=== PATIENT | female | born 1935 | race Caucasian/White ===

== ENCOUNTER → 2022-07-10 12:26 | Outpatient (CLI) | payer MEDICARE, SELFPAY ==
--- NOTE | 2022-07-10 | DI.ECHO.S_ITS ---
[facility] +---------+ : : [address] : [address] : : : : [id number] : : : : Phone: [phone]+ Echocardiogram Report + + :Name: DEBBIE ORLANDO Study Date: 07/10/2022 Height: 62 in : [facility] ReadingLocation: Weight: 140 lb : : Gender: Female BSA: 1.6 m2 : :: 1935 Age: 86 yrs BP: 134/69 mmHg: :Reason For Study: AORTIC STENOSIS : :Ordering Physician: WERNER, : :DAYANA Performed By: Talita Salazar : :Referring: DAYANA MERINO : + + Interpretation Summary 1) Normal left ventricular thickness, size, wall motion, and systolic function (EF 60-65%). 2) Mildly enlarged right ventricle with normal function. 3) There is severe aortic stenosis (valve area 0.8cm2, mean gradient 34mmmHg, severity ratio 0.25). 4) Compared to the Echo done 05/10/2017, aortic stenosis has progressed from mild-moderate to severe on this study. Procedure: A two-dimensional transthoracic echocardiogram with color flow and Doppler was performed. The study quality was technically adequate. There is no prior echocardiogram noted for this patient. The patient was in sinus rhythm with heart rates between 60-68 bpm during the exam. Left Ventricle: The left ventricle is normal in size and wall thickness. The ejection fraction is estimated to be 60-65%. Left ventricular systolic function appears normal without focal wall motion abnormalities. Diastolic parameters suggest a pseudonormalization pattern, consistent with probable elevated filling pressures. Right Ventricle: The right ventricle is mildly dilated. The right ventricular systolic function is normal. Atria: The left atrium is moderately dilated. Right atrial size is normal. There is no Doppler evidence for an interatrial shunt. Mitral Valve: There is moderate to severe mitral annular calcification. The mitral valve leaflets are mildly calcified. The mitral valve mean gradient is 2.3 mmHg. There is mild mitral regurgitation. Aortic Valve: The aortic valve is moderately calcified. The aortic valve is trileaflet. There is severe aortic stenosis. The peak aortic velocity is 3.6 m/sec. The aortic valve mean gradient is 34 mmHg. The calculated aortic valve area is 0.8 cm2. There is mild aortic regurgitation. Tricuspid Valve: The tricuspid valve is normal in structure and function. There is mild tricuspid regurgitation. The right ventricular systolic pressure is estimated to be at least 30 mmHg based on an estimated right atrial pressure of 3 mm Hg. Pulmonic Valve: The pulmonic valve is not well visualized. There is no pulmonic valvular regurgitation. Great Vessels: The aortic root is normal size. The ascending aorta could not be visualized. The IVC is of normal diameter and collapses greater than 50% with a sniff. This suggests a low right atrial pressure of 3 mm Hg. Pericardium/ Pleura There is no pericardial effusion. There is no pleural effusion. MMode/2D Measurements & Calculations LVIDd: 4.5 cm LVOT diam: 2.0 cm LVIDs: 2.7 cm Ao root diam: 3.2 cm FS: 40.8 % IVSd: 0.80 cm LVPWd: 0.94 cm LV rivas. diameter/BSA (cm/m^2): 2.7 LV sys. diameter/BSA (cm/m^2): 1.6 LA A2 area: 22.4 cm2 RA long axis: 5.2 cm LA A4 area: 20.2 cm2 RA area: 15.9 cm2 LA length (vol): 5.2 cm RA vol: 40.7 ml LA vol: 74.0 ml RA : 24.8 ml/m2 LA vol index: 45.0 ml/m2 IVC diam: 1.5 cm RVD1 (basal): 4.4 cm RVD2 (mid): 3.1 cm TAPSE: 2.1 cm Doppler Measurements & Calculations Ao V2 max: 360.0 cm/sec LVOT Max Wesly: 77.3 cm/sec Ao V2 mean: 259.5 cm/sec LV V1 max P.4 mmHg Ao max P.8 mmHg LV V1 VTI: 20.9 cm Ao mean P.7 mmHg DANIELLA(I,D): 0.80 cm2 Ao V2 VTI: 82.1 cm DANIELLA(V,D): 0.68 cm2 sev ratio: 0.25 DANIELLA indexed to BSA (cm^2/m^2): 0.49 MV E max wesly: 90.1 cm/sec TR max wesly: 258.7 cm/sec MV A max wesly: 129.1 cm/sec TR max P.8 mmHg MV E/A: 0.70 PA V2 max: 92.2 cm/sec Med Peak E' Wesly: 5.0 cm/sec PA V2 mean: 62.6 cm/sec E/E' med: 18.1 PA mean P.8 mmHg Lat Peak E' Wesly: 5.7 cm/sec PA pr(Accel): 22.5 mmHg E/E' lat: 15.9 E/e' average: 17.0 MV dec time: 0.24 sec MVA(VTI): 1.7 cm2 MV V2 mean: 70.4 cm/sec SV(LVOT): 65.7 ml MV mean P.3 mmHg MV V2 VTI: 38.0 cm Reading Physician:[id number] PM
== END ==
PROVIDERS: Referring Provider Internal Medicine Cardiovascular Disease; Visit Provider Internal Medicine Cardiovascular Disease
DX: I08.3 Combined rheumatic disorders of mitral, aortic and tricuspid valves (principal)
CPT/HCPCS: 93306